=== PATIENT | female | born 1985 | race Caucasian/White ===

== ENCOUNTER → 2020-02-25 | Outpatient (CLI) | payer OTHER ==
[~2020-02-25] MED LIST: PRENATAL PO; ZANTAC 150MG T150 MG PO
== END ==
LOC: M.ULTRA 10:30
PROVIDERS: ATTEND Nurse Practitioner Family
DX: N88.8 Other specified noninflammatory disorders of cervix uteri (principal); N94.10 Unspecified dyspareunia